=== PATIENT | female | born 1990 | race Caucasian/White ===

== ENCOUNTER 2019-03-30 23:47 | Emergency (ER) | payer OTHER, SELFPAY ==
[2019-03-31] VITALS: BP 118/65; PULSE 76; RESP 18; TEMP 37.2; O2SAT 99; BMI 24.0
[2019-03-31] MEDS: TET,DIPH,PERTUSS(ACELL),VAC/PF 0.5 ML SYRINGE IM (02:17)
[2019-03-31 02:20] VITALS: BP 118/70; PULSE 70; RESP 18; O2SAT 99
--- NOTE | 2019-03-31 07:23 | ED.WOUNDLAC ---
HPI - Wound/Laceration General Chief Complaint: Wound/Laceration Stated Complaint: Laceration right eyebrow at work Time Seen by Provider: 03/31/19 00:02 Source: patient Mode of arrival: ambulatory Limitations: no limitations History of Present Illness HPI narrative: 28-year-old female nonsmoker with benign medical history presents with a chief complaint of a ground level fall resulting in the 3 cm laceration over her right brow. She slipped on the floor and fell forward, to quickly to catch herself. She denies loss of consciousness nor nausea or vomiting. She takes no blood thinners and denies use of alcohol or street drugs. She has no significant distracting injuries and is otherwise well and free of complaint. She was initially evaluated on scene by the paramedics but refused transport Onset (ago): minute(s) Location: face Place: home Patient tetanus UTD: No Context: accidental Associated symptoms: pain Review of Systems Constitutional Denies chills, Denies fever(s), Denies lethargy and Denies weakness Eyes Denies change in vision, Denies eye discharge, Denies irritation and Denies loss of vision ENT Ears, Nose, Mouth, and Throat: Denies change in voice, Denies neck pain and Denies sore throat Cardiovascular Denies chest pain, Denies irregular heart rhythm, Denies lightheadedness, Denies palpitations, Denies dyspnea, Denies dyspnea on exertion and Denies orthopnea Respiratory Denies cough, Denies dyspnea, Denies dyspnea on exertion and Denies wheezing Gastrointestinal Gastrointestinal: Denies abdominal pain, Denies change in bowel habits, Denies diarrhea, Denies nausea and Denies vomiting Genitourinary Denies hematuria, Denies flank pain, Denies urinary incontinence and Denies urinary urgency Musculoskeletal Denies neck pain Integumentary/Breasts Denies pruritus, Denies erythema, Denies rash and Reports wounds Neurologic Denies confusion, Denies loss of vision and Denies weakness Psychiatric Denies anxiety, Denies confusion, Denies depression, Denies homicidal ideation and Denies suicidal ideation Endocrine Denies palpitations Hematologic/Lymphatic Denies easy bruising Allergic/Immunologic Denies wheezing Exam Narrative Exam Narrative: GEN: AOx3 and in mild distress, GCS 15 HEAD: 3cm laceration over left eye with active bleeding, no depressed skull fracture NECK: No midline bony pain or step-off, no worsening with range of motion or axial load EYES: Pupils are equal, round, and reactive to light and accommodation. Extraoccular muscles are intact bilaterally. There is no subconjunctival hemorrhage or exudate. CHEST: Lungs are clear to auscultation bilaterally and free of wheezes, rales, or rhonchi. Heart rate is regular rhythm, there are no murmurs, clicks, rubs, or gallops. There is no chest wall tenderness. ABD: Abdomen is soft and nontender. There is no guarding or rebound. Bowel sounds are normal in all 4 quadrants. There is no mass or organomegaly. EXT: Full painless ROM of all extremities with no loss of sensation or strength. SKIN: Warm, pink, and dry. No erythema or rash Initial Vital Signs Initial Vital Signs: Vital Signs Temperature 98.9 F 03/31/19 00:00 Pulse Rate 76 03/31/19 00:00 Respiratory Rate 18 03/31/19 00:00 Blood Pressure 118/65 03/31/19 00:00 Pulse Oximetry 99 03/31/19 00:00 Procedures Laceration Repair Laceration 1: Site: face Side (If applicable): right Size (cm): 3 Description: linear Depth: involves muscle layer Local Anesthetic: lidocaine 2% Amount of anesthesia used (mL): 4 Pre-repair: wound explored and irrigated extensively Skin layer closed with: nylon Size (cm): 6-0 Technique: simple, interrupted Subcutaneous layer closed with: vicryl Size: 5-0 Technique: simple, interrupted Course Orders Ordered: Discontinued Medications Diphtheria/Tetanus/Acell Pertussis (Adacel) 0.5 ml IM .ONCE ONE Stop: 03/31/19 01:59 Last Admin: 03/31/19 02:17 Dose: 0.5 ml Vital Signs - 8 hr 03/31/19 00:00 03/31/19 02:20 Temperature 98.9 F Pulse Rate 76 70 Respiratory Rate 18 18 Blood Pressure 118/65 118/70 Pulse Oximetry 99 99 Discharge Plan Departure Patient Disposition: Home Clinical Impression: Laceration Discharge Date/Time: 03/31/19 02:20 Interventions: ED Discharge Assessment Last Done: 03/31/19 02:20 Instructions: DI for Laceration Repair Activity Restrictions/Additional Instructions: *You have been diagnosed with [facial laceration] *What to do: *Take medications as directed: Tylenol or Motrin for pain * Please keep the wound clean and dry to the best of your ability. Please monitor for signs of infection such as redness to the skin or increasing pain. Have the sutures removed by your doctor in about 7 days. If you are unable to get into your doctor, we would be happy to remove the sutures in that same timeframe.
== END 2019-03-31 02:20 | disposition home or self-care (01) ==
PROVIDERS: Emergency Provider Emergency Medicine
DX: S01.111A Laceration without foreign body of right eyelid and periocular area, initial encounter (principal); W01.0XXA Fall on same level from slipping, tripping and stumbling without subsequent striking against object, initial encounter; Y99.0 Civilian activity done for income or pay
CPT/HCPCS: 12011; 90471; 99283; 90715